=== PATIENT | female | born 1995 | race Hispanic/Latino ===

== ENCOUNTER 2024-01-02 21:37 | Emergency (ER) | payer SELFPAY ==
--- NOTE | ~2024-01-02 | US_ITS ---
US OB <=14 wk fetus w TV DATE: 01/03/2024 00:45 INDICATION: Pain. Rule out ectopic . TECHNIQUE: Real-time imaging via transabdominal and transvaginal approaches COMPARISON: None FINDINGS: Possible early intrauterine gestational sac with suggestion of surrounding hyperechogenicity/decidual reaction; sac size would be consistent with 5 weeks 1 day estimated gestational age. No pole o r yolk sac is evident. Correlation with serum beta hCG levels and short-term follow-up ultrasound are recommended as clinically appropriate. The uterus measures 10 cm height, 6.3 cm AP and 7 x 8 cm transverse dimension. Right ovary 3.2 x 3.5 x 2.8 cm with vascular flow. Left ovary 3.4 x 3.6 x 3.3 cm, with vascular flow. 2.7 cm left ovarian corpus luteum cyst. No free pelvic fluid collection is identified. IMPRESSION: Possible early intrauterine gestational sac, 5 weeks 1 day estimated gestational age Suspected 2.7 cm left ovarian corpus luteum cyst Reviewed, dictated and finalized at [facility] Reviewed, dictated and finalized at [facility]. IMPRESSION: Possible early intrauterine gestational sac, 5 weeks 1 day estimate d gestational age Suspected 2.7 cm left ovarian corpus luteum cyst
[2024-01-02 21:43] VITALS: BP 142/83; PULSE 94; RESP 14; TEMP 36.9; O2SAT 100
[2024-01-02] MEDS: SODIUM CHLORIDE 0.9% IV 1,000 ML 999 ML IV CONT (22:59)
[2024-01-02] MEDS: ONDANSETRON INJ 4 MG/2 ML VIAL IV PUSH (22:59)
[2024-01-02 23:08] LABS: Basophils Absolute Auto 0.1 K/mm3 (0.0-0.1); Basophils Percent Auto 0.9 % (0.2-1.2); Eosinophils Absolute Auto 0.2 K/mm3 (0-0.3); Eosinophils Percent Auto 2.7 % (0-4.4); Hematocrit 38.8 % (37.0-47.0); Hemoglobin 12.5 g/dL (12.0-15.0); Immature Granulocyte Absolute 0.02 K/mm3 (0.00-0.031); Immature Granulocyte Percent A 0.4 % (0-0.5); Lymphocytes Absolute Auto 1.08 K/mm3 (0.9-3.2); Lymphocytes Percent Auto 19.4 % (18.3-44.2); Mean Corpuscular HGB Conc 32.2 g/dl (32-36); Mean Corpuscular Hemoglobin 25.7 pg (26-34); Mean Corpuscular Volume 79.8 fl (80-100); Mean Platelet Volume 10.1 fl (7.4-10.4); Monocytes Absolute Auto 0.6 K/mm3 (0.1-0.6); Monocytes Percent Auto 10.8 % (2.6-8.5); Neutrophils Absolute Auto 3.7 K/mm3 (1.3-6.7); Neutrophils Percent Auto 65.8 % (45.5-73.1); Platelet Count Result 247 k/mm3 (150-375); Red Blood Count 4.86 M/mm3 (4.2-5.4); Red Cell Distribution Width 14.9 % (11.5-14.5); White Blood Count 5.6 K/mm3 (4.5-10.0)
[2024-01-02 23:12] LABS: Alanine Aminotransferase 22 U/L (6-35); Albumin Level 4.6 g/dL (3.5-5.1); Alkaline Phosphatase 92 U/L (38-126); Anion Gap 9 mmol/L (4-12); Aspartate Amino Transferase 22 U/L (14-36); Bilirubin,Total 0.4 mg/dL (0.2-1.3); Blood Urea Nitrogen 13 mg/dL (7-17); Calcium 9.7 mg/dL (8.4-10.2); Carbon Dioxide 23 mmol/L (22-30); Chloride 106 mmol/L (98-107); Estimated Glomerular Filt Rate > 60; Glucose 155 mg/dL (65-110); Potassium 3.4 mmol/L (3.4-5.0); Sodium 138 mmol/L (137-145)
[2024-01-02 23:38] LABS: Influenza A QL RT-PCR Negative (Negative); Influenza B QL RT-PCR Negative (Negative); RSV RNA, RT-PCR Negative (Negative); SARS-CoV-2 RNA PCR Negative (Negative)
--- NOTE | 2024-01-02 23:55 | ED.GENADULT ---
HPI - General Adult General Chief complaint: Nausea/Vomiting/Diarrhea Stated complaint: vomiting/diarrhea, abd pain Time Seen by Provider: 01/02/24 22:15 History of Present Illness HPI narrative: Patient is a 28-year-old female who presents to the emergency department this evening complaining of abdominal pain. When asked where the pain is, patient points to the middle of her abdomen. Patient is Portuguese-speaking only and translation services were used to obtain the HPI and communicate with patient. Patient states that she did not know that she was until today when she took a home test after she started to have some abdominal pain and found to be positive. Patient admits that she has a 4-year-old child and has had 2 miscarriages in the past. She admits to nausea and vomiting which started today, denies any vaginal bleeding or spotting. Patient currently does not have an OBGYN. She is currently denying any additional symptoms at this time. There are no other modifying, alleviating, or precipitating symptoms. Related Data Allergies Allergy/AdvReac Type Severity Reaction Status Date / Time No Known Allergies Allergy Verified 01/02/24 21:38 Review of Systems Review of Systems: All systems are reviewed and are negative unless stated otherwise in the HPI. Exam Narrative: General: Alert, awake, afebrile, in no acute distress. HEENT: PERRL, no rhinorrhea, no post nasal drip, oropharynx clear. Neck: Trachea midline, no JVD, no lymphadenopathy. Cardiovascular: Regular rate and rhythm, no murmurs, rubs or gallops, no peripheral edema. Respiratory: Clear to auscultation bilaterally, no tachypnea, no wheezing, no rhonchi, no rubs, no respiratory distress. Abdomen: Soft, nontender, nondistended, no rebound, no guarding, no peritoneal signs. Musculoskeletal: No joint swelling or deformity, normal muscle tone. Skin: No rashes or petechia, no signs of infection. Psychiatric: Alert and oriented, normal behavior and judgment for situation. Neurological: Alert and oriented to person, place, and time. Follows all commands. No focal deficits, speech is clear and fluent. Course Vital Signs Vital signs: Vital Signs Temperature 98.4 F 01/02/24 21:43 Pulse Rate 94 01/02/24 21:43 Respiratory Rate 14 01/02/24 21:43 Blood Pressure 142/83 H 01/02/24 21:43 Pulse Oximetry 100 01/02/24 21:43 Oxygen Delivery Room Air 01/02/24 21:43 Temperature 98.4 F 01/02/24 21:43 Pulse Rate 94 01/02/24 21:43 Respiratory Rate 14 01/02/24 21:43 Blood Pressure 142/83 H 01/02/24 21:43 Pulse Oximetry 100 01/02/24 21:43 Oxygen Delivery Room Air 01/02/24 21:43 Medical Decision Making MDM Narrative Medical decision making narrative: The patient was evaluated by myself in the emergency department. History is obtained from patient who is an independent historian and physical exam was performed. External medical records were reviewed at this time. IV was established and pertinent tests were ordered. Patient was administered 1 L IV fluid bolus with normal saline and 4 mg of IV Zofran. Laboratory results obtained revealing no acute process. Beta-hCG was noted to be 3007. Urinalysis revealed Imaging studies obtained included pelvic ultrasound with transvaginal which was independently interpreted by me revealing a gestational sac noted without any evidence of yolk sac or pole which may relate to early intrauterine recommending follow-up ultrasound. Patient was informed of these findings at bedside and informed that she will be provided with an OBGYN to follow up with the for her and for her next ultrasound and patient is agreeable. Differential diagnosis considerations include 1st trimester , ectopic , acute viral syndrome and gastroenteritis. Comorbidities impacting this visit include none. I have evaluated and discussed social determinants of health wit
[2024-01-03 00:16] LABS: Appearance Urine Cloudy (Clear); Bacteria Urine 2+ /hpf; Bilirubin Urine Negative (Negative); Blood Urine 1+ (Negative); Color Urine Yellow (Yellow); Glucose Urine UA Trace mg/dL (Negative); Ketones Urine Negative (Negative); Leukocyte Esterase Ur 2+ LEU/UL (Negative); Nitrate Urine Negative (Negative); Non Pathogenic Casts 0-2; Protein Urine Negative (Negative); RBC Urine 0-2 /hpf (0-2); Specific Grav Ur 1.016 (1.001-1.035); Squamous Epithelial Cell Urine Few /hpf (Few); Urobilinogen Urine 0.2 mg/dL (<2.0); WBC Urine 21-50 /hpf (0-3)
[2024-01-03 01:14] LABS: Add Urine Microscopic? YES
[2024-01-03 06:01] VITALS: BP 178/86; PULSE 68; RESP 16; O2SAT 98
== END 2024-01-03 06:02 | disposition home or self-care (01) ==
PROVIDERS: Emergency Provider Emergency Medicine
DX: O21.0 Mild hyperemesis gravidarum (principal); Z20.822 Contact with and (suspected) exposure to COVID-19
CPT/HCPCS: 36415; 76801; 76817; 80053; 81001; 81025; 84702; 85025; 87086; 87637; 96361; 96374; 99284; J2405; J7030